=== PATIENT | female | born 1965 | race African-American/Black ===

== ENCOUNTER 2022-06-07 04:47 | Emergency (ER) | payer MEDICAID, SELFPAY ==
[2022-06-07] VITALS (19 sets, daily range): BP systolic 122–173; BP diastolic 65–90; PULSE 72–90; RESP 14–24; TEMP 37.1; O2SAT 97–99
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
[2022-06-07 05:13] LABS: Basophils Percent Auto 0.2 % (0.2-1.2); Eosinophils Absolute Auto 0.2 K/mm3 (0-0.3); Eosinophils Percent Auto 1.4 % (0-4.4); Hemoglobin 12.8 g/dL (12.0-15.0); Immature Granulocyte Absolute 0.07 K/mm3 (0.00-0.031); Immature Granulocyte Percent A 0.5 % (0-0.5); Lymphocytes Absolute Auto 1.55 K/mm3 (0.9-3.2); Lymphocytes Percent Auto 12.2 % (18.3-44.2); Mean Corpuscular HGB Conc 32.8 g/dl (32-36); Mean Corpuscular Hemoglobin 30.8 pg (26-34); Monocytes Absolute Auto 0.6 K/mm3 (0.1-0.6); Monocytes Percent Auto 4.9 % (2.6-8.5); Neutrophils Absolute Auto 10.3 K/mm3 (1.3-6.7); Neutrophils Percent Auto 80.8 % (45.5-73.1); Platelet Count Result 318 k/mm3 (150-375); Red Blood Count 4.15 M/mm3 (4.2-5.4); Red Cell Distribution Width 12.2 % (11.5-14.5); White Blood Count 12.8 K/mm3 (4.5-10.0)
[2022-06-07 05:22] LABS: Ethanol < 10 mg/dL (<10)
[2022-06-07 05:28] LABS: Alanine Aminotransferase 31 U/L (6-35); Albumin Level 4.5 g/dL (3.5-5.1); Alkaline Phosphatase 78 U/L (38-126); Anion Gap 14 mmol/L (8-16); Aspartate Amino Transferase 34 U/L (14-36); Bilirubin,Total 0.7 mg/dL (0.2-1.3); Blood Urea Nitrogen 8 mg/dL (7-17); Calcium 9.3 mg/dL (8.4-10.2); Carbon Dioxide 29 mmol/L (22-30); Chloride 97 mmol/L (98-107); Estimated CRCL calculation 60 ml/min; Estimated Glomerular Filt Rate > 60; Glucose 112 mg/dL (65-110); Potassium 3.4 mmol/L (3.4-5.0); Sodium 140 mmol/L (137-145)
[2022-06-07 05:29] LABS: Acetaminophen < 10 ug/mL (10-30); Salicylate < 1.0 mg/dL (2-20)
[2022-06-07 05:48] LABS: SARS-CoV-2 RNA PCR Negative
--- NOTE | 2022-06-07 05:53 | PC.NURSE ---
ON TODAYS DATE 06/07/2022 MED WAS ACTIVATED AT 0503. CALL FOR HELP WAS NOTIFIED AT 0505. PREMA FROM MED ON-CALL RETURNED CALL AT 0521 from [phone].
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
[2022-06-07 06:40] LABS: Add Urine Microscopic? YES; Appearance Urine Clear (Clear); Bilirubin Urine Negative (Negative); Blood Urine 1+ (Negative); Color Urine Yellow (Yellow); Glucose Urine UA Negative (Negative); Ketones Urine Trace mg/dL (Negative); Leukocyte Esterase Ur Negative LEU/UL (Negative); Mucus Urine Rare /lpf; Nitrate Urine Negative (Negative); Protein Urine Negative (Negative); RBC Urine 0-2 /hpf (0-2); Specific Grav Ur 1.017 (1.001-1.035); Squamous Epithelial Cell Urine Occasional /hpf (Few); WBC Urine 0-3 /hpf
[2022-06-07 06:50] LABS: Barbiturate Screen Urine Negative (Negative); Benzodiazepines Screen Urine Negative (Negative)
[2022-06-07 06:51] LABS: Cannabinoid Screen Urine Negative (Negative); Cocaine Screen Urine Positive (Negative); Methadone Screen Urine Negative (Negative); Opiate Screen Urine Negative (Negative); Phencyclidine Screen Urine Negative (Negative)
[2022-06-07 06:54] LABS: Amphetamine Screen Urine Negative (Negative)
--- NOTE | 2022-06-07 07:10 | PC.NURSE ---
report from night custodian rn. pt sleeping on stretcher. no distress noted.
--- NOTE | 2022-06-07 09:16 | ECG_ITS ---
Measurements Intervals [place] Rate: 91 P: 79 MA: 149 QRS: 39 QRSD: 87 T: 57 QT: 351 QTc: 433 Interpretive Statements SINUS RHYTHM POSSIBLE LEFT ATRIAL ENLARGEMENT BORDERLINE ECG RSR' V1 NO PREVIOUS ECG AVAILABLE FOR COMPARISON Electronically Signed On 06-07-2022 16:25:23 CDT by Paul Hayden M.D.
--- NOTE | 2022-06-07 10:28 | PC.NURSE ---
nya from [place] at bedside.
--- NOTE | 2022-06-07 10:52 | PC.NURSE ---
pts aunt madhu contacted ed. per family unsure of pts medical history. states pt is involved in drugs and has been in and out of [facility]. crisis to come back and evaluate when pt more alert.
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
--- NOTE | 2022-06-07 14:00 | PC.NURSE ---
Pt. states being suicidal but with no plan. Pt. is low risk at this time. 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
== END 2022-06-07 22:25 | disposition home or self-care (01) ==
PROVIDERS: Emergency Provider Emergency Medicine
DX: T71.193A Asphyxiation due to mechanical threat to breathing due to other causes, assault, initial encounter (principal); F14.90 Cocaine use, unspecified, uncomplicated; R45.851 Suicidal ideations; Z20.822 Contact with and (suspected) exposure to COVID-19; M17.12 Unilateral primary osteoarthritis, left knee; S22.42XA Multiple fractures of ribs, left side, initial encounter for closed fracture; R91.8 Other nonspecific abnormal finding of lung field; R94.31 Abnormal electrocardiogram [ECG] [EKG]; X58.XXXA Exposure to other specified factors, initial encounter
CPT/HCPCS: 36415; 70450; 70498; 71260; 73562; 74177; 80053; 80307; 81001; 85025; 93005; 99284; Q9967; U0003; U0005

== ENCOUNTER 2022-06-07 22:57 | Emergency (ER) | payer MEDICAID, SELFPAY ==
[2022-06-07 23:27] VITALS: BP 138/79; PULSE 88; RESP 16; TEMP 37.1; O2SAT 97
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
[2022-06-08 00:43] LABS: Basophils Absolute Auto 0.1 K/mm3 (0.0-0.1); Basophils Percent Auto 0.5 % (0.2-1.2); Eosinophils Absolute Auto 0.4 K/mm3 (0-0.3); Eosinophils Percent Auto 3.2 % (0-4.4); Hematocrit 36.6 % (37.0-47.0); Hemoglobin 11.8 g/dL (12.0-15.0); Immature Granulocyte Absolute 0.06 K/mm3 (0.00-0.031); Immature Granulocyte Percent A 0.5 % (0-0.5); Lymphocytes Absolute Auto 2.07 K/mm3 (0.9-3.2); Lymphocytes Percent Auto 16.7 % (18.3-44.2); Mean Corpuscular HGB Conc 32.2 g/dl (32-36); Mean Corpuscular Hemoglobin 30.6 pg (26-34); Mean Corpuscular Volume 94.8 fl (80-100); Mean Platelet Volume 9.1 fl (7.4-10.4); Monocytes Absolute Auto 0.9 K/mm3 (0.1-0.6); Monocytes Percent Auto 6.8 % (2.6-8.5); Neutrophils Percent Auto 72.3 % (45.5-73.1); Platelet Count Result 331 k/mm3 (150-375); Red Blood Count 3.86 M/mm3 (4.2-5.4); White Blood Count 12.4 K/mm3 (4.5-10.0)
[2022-06-08 00:51] LABS: Alanine Aminotransferase 34 U/L (6-35); Alkaline Phosphatase 79 U/L (38-126); Anion Gap 11 mmol/L (8-16); Aspartate Amino Transferase 40 U/L (14-36); Bilirubin,Total 0.4 mg/dL (0.2-1.3); Blood Urea Nitrogen 10 mg/dL (7-17); Calcium 9.1 mg/dL (8.4-10.2); Carbon Dioxide 33 mmol/L (22-30); Chloride 99 mmol/L (98-107); Estimated Glomerular Filt Rate > 60; Glucose 113 mg/dL (65-110); Potassium 4.5 mmol/L (3.4-5.0); Sodium 143 mmol/L (137-145)
[2022-06-08 00:53] LABS: Acetaminophen < 10 ug/mL (10-30); Ethanol < 10 mg/dL (<10); Salicylate < 1.0 mg/dL (2-20)
[2022-06-08 01:00] LABS: Amphetamine Screen Urine Negative (Negative); Barbiturate Screen Urine Negative (Negative); Benzodiazepines Screen Urine Negative (Negative); Cannabinoid Screen Urine Positive (Negative); Cocaine Screen Urine Positive (Negative); Methadone Screen Urine Negative (Negative); Opiate Screen Urine Negative (Negative); Phencyclidine Screen Urine Negative (Negative)
--- NOTE | 2022-06-08 03:21 | PC.NURSE ---
Patient was moved from 15 to room 7.
--- NOTE | 2022-06-08 05:58 | ECG_ITS ---
Measurements Intervals [place] Rate: 72 P: 67 NE: 157 QRS: 22 QRSD: 90 T: 37 QT: 394 QTc: 433 Interpretive Statements SINUS RHYTHM POSSIBLE LEFT ATRIAL ENLARGEMENT [-0.1mV P-WAVE IN V1/V2] COMPARED TO ECG 06/07/2022 14:57:04 NO SIGNIFICANT CHANGES Electronically Signed On 06-08-2022 14:26:05 CDT by Acosta Pepper M.D.
--- NOTE | 2022-06-08 06:12 | PC.NURSE ---
Patient just stated his name is Norah Hook or Miladys Almazan
--- NOTE | 2022-06-08 06:17 | PC.NURSE ---
Per verbalized by phone call with the patients Aunt at this time the patients name is Norah
--- NOTE | 2022-06-08 06:53 | PC.NURSE ---
THis RN and Kerri RN called the Aunt again and she spelled the name Miladys when before she confirmed Norah with an M. All new paperwork needs to be faxed over along with a new SUHAIL TELLEZ test
[2022-06-08 06:59] LABS: SARS-CoV-2 RNA PCR Negative
[2022-06-08 08:21] LABS: Add Urine Microscopic? YES; Appearance Urine Clear (Clear); Bilirubin Urine Negative (Negative); Blood Urine Negative (Negative); Color Urine Amber (Yellow); Glucose Urine UA Negative (Negative); Ketones Urine Negative (Negative); Leukocyte Esterase Ur Negative LEU/UL (Negative); Mucus Urine Rare /lpf; Nitrate Urine Negative (Negative); Protein Urine Negative (Negative); Specific Grav Ur 1.028 (1.001-1.035); Squamous Epithelial Cell Urine Occasional /hpf (Few)
[2022-06-08 12:30] VITALS: BP 137/76; PULSE 80; RESP 16; TEMP 36.9; O2SAT 96
== END 2022-06-08 12:30 ==
PROVIDERS: Emergency Provider Emergency Medicine
DX: R45.851 Suicidal ideations (principal); Z20.822 Contact with and (suspected) exposure to COVID-19
CPT/HCPCS: 36415; 70450; 70498; 71260; 73562; 74177; 80053; 80307; 81001; 85025; 93005; 99285; Q9967; U0003; U0005